=== PATIENT | male | born 2005 | race Caucasian/White ===

== ENCOUNTER 2024-06-08 23:56 | Emergency (ER) | payer OTHER, SELFPAY ==
[2024-06-08 23:57] VITALS: BP 140/63; PULSE 84; RESP 16; TEMP 36.7; O2SAT 98; BMI 29.3
--- NOTE | 2024-06-09 00:44 | EX.ED.VIS.EY ---
HPI History of Present Illness Chief Complaint: Eye Problem Informant: patient Narrative Narrative: Healthy 18-year-old male with a left thigh injury due to chemical splashing in it. This is a work-related injury, he states he was lifting a container containing chemical that they used to clean the floors, as he lifted it some of the shafting cleaner shot out of a hole in the container, went under the safety goggles he was wearing, and went into his left eye. He immediately did an aggressive irrigation at the eyewash station, and his employer also had him do a vial of eye irrigation. He states the burning and blurred vision is better now. He still has some blurriness in the periphery but states he can make things out and distance the same as usual. He denies wearing any eyeglasses or contacts. He denies any other injury. PFSH PFSH Medical History no medical history no medical history Allergy/AdvReac Type Severity Reaction Status Date / Time No Known Allergies Allergy Verified 06/08/24 23:58 Social History Smoking Status: Former smoker ROS ROS ED Constitutional Constitutional ED: Denies chills or fever(s) Eyes Eyes: Reports as per HPI, blurry vision left and eye pain ENT ENT ED: Denies ear pain, rhinorrhea or sore throat Neurologic Neurologic: Denies headache(s), paresthesias or weakness EXAM Physical Exam Const Vital Signs: 06/08/24 23:57 Temperature 98.1 F Temperature Source Oral Pulse Rate 84 Respiratory Rate 16 Blood Pressure 140/63 H Blood Pressure Mean 88 Pulse Ox 98 Oxygen Delivery Method Room Air Positive well nourished and well developed General Appearance ED: well developed and NAD HEENT atraumatic; Negative for tenderness Mouth ED: Yes oral and palatal mucosa normal and Yes lips normal Mouth: oral and palatal mucosa normal and lips normal Eyes PERRL and EOMs intact bilaterally Eyes Narrative: Diffuse left conjunctival injection. No chemosis. Anterior chamber deep and quiet no hyphema or clouding on gross inspection. No discharge. No other abnormal conjunctival findings. No gross foreign bodies. Neuro oriented x3, CN's II-XII intact bilaterally and gait normal Sensorium / Orientation: alert Skin Lesions: no lesions Rashes: no rashes MDM MDM MDM Narrative Medical decision making narrative: The employer brought the patient with the MSDS for the chemical, which is [employer] LP which appears to contain sodium hydroxide and sodium hypochlorite as the main caustic ingredients. Before doing anything else, I obtained some eye pH paper and checked his pH, it appears to be in the 8-9 range. Therefore I had nurses check his vision, apply tetracaine drops to the left eye, and perform aggressive irrigation with a Michael lens. He felt much better after this and I rechecked his pH, it is 7. Patient given appropriate discharge instructions follow-up with [facility], stable for discharge. Discharge Plan Triage Chief Complaint: Eye Problem ED Provider: Mundo Puri Dx/Rx/DC Orders Clinical Impression: Chemical exposure of eye Instructions: ED Eye Exposure, Chemical Stand Alone Forms: Work Status Form Primary Care Provider: Cornel Medina [facility] [place] [facility]] - As soon as possible Print Language: Bulgarian Disposition Disposition: Home, Self Care Discharge Date/Time: 06/09/24 01:47
[2024-06-09] MEDS: Tetracaine 0.5% Ophthalmic Bottle 2 DRP LEFT EYE (00:53)
== END 2024-06-09 01:47 | disposition home or self-care (01) ==
PROVIDERS: Emergency Provider Emergency Medicine; PCP Family Medicine; Visit Provider Emergency Medicine
DX: Z77.098 Contact with and (suspected) exposure to other hazardous, chiefly nonmedicinal, chemicals (principal); Z87.891 Personal history of nicotine dependence
CPT/HCPCS: 99284